=== PATIENT | female | born 1945 | race Caucasian/White ===

== ENCOUNTER 2016-12-17 10:48 | Outpatient (CLI) | payer MEDICARE, OTHER ==
--- NOTE | 2016-12-18 17:03 | Mammography Report ---
DIGITAL SCREENING MAMMOGRAM: 12/17/2016 CLINICAL INDICATION: A 71-year-old with history of benign biopsy for screening. COMPARISON: 09/2015, 08/2014, 07/2013, 06/2012, 04/2011, 02/2010, 01/2009, 01/2008, 01/2007. TECHNIQUE: Routine CC and MLO projections were obtained of the breasts. FINDINGS: The breasts again demonstrate scattered fibroglandular densities bilaterally. Punctate, t ypically benign calcifications are present. Intramammary lymph node at the left upper outer quadrant is stable. No suspicious masses, clustered microcalcifications, or regions of architectural distort ion are identified. IMPRESSION: BENIGN FINDINGS. RECOMMENDATION: Routine annual screening unless otherwise clinically indicated. BIRADS CATEGORY 2 - BENIGN FINDINGS. STANDARD QUALIFYING STATEMENTS 1. This examination was reviewed with the aid of Computer-Aided Detection (CAD). 2. A negative or benign imaging report should not delay biopsy if clinically suspicious findings are present. Consider surgical consultation if warranted. More than 5% of cancers are not identified by i maging. 3. Dense breasts may obscure an underlying neoplasm. JOB #: [id number] EXT JOB #:[id number]
== END 2016-12-17 10:49 | disposition home or self-care (01) ==
LOC: DI.N 10:48
PROVIDERS: ATTEND Family Medicine
DX: Z12.31 Encounter for screening mammogram for malignant neoplasm of breast (principal)
CPT/HCPCS: 77067

== ENCOUNTER 2017-01-14 15:28 | Outpatient (CLI) | payer MEDICARE, OTHER | END 2017-01-14 15:29 | disposition short-term general hospital (02) | LOC: EMS 15:28 | PROVIDERS: ATTEND Surgery | DX: R07.9 Chest pain, unspecified (principal) | CPT/HCPCS: A0425; A0427; A0888 ==

== ENCOUNTER 2017-10-02 12:48 | Outpatient (CLI) | payer MEDICARE, OTHER ==
--- NOTE | 2017-10-02 13:36 | Ultrasound Report ---
EXAM: THYROID ULTRASOUND EXAM DATE: 10/02/2017 01:22 PM. CLINICAL HISTORY: THYROID CYST. 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 COMPARISON: None. TECHNIQUE: Real time sonographic imaging of the thyroid was performed by the wheel assembler. Multiple re presentative static images were saved for review. FINDINGS: THYROID GLAND: Right Lobe: 2.3 x 0.8 x 1.0 cm, volume 0.92 cc. Diffusely heterogeneous. Small volume. Minimal vascu larity. Right Lobe Nodules: None. Left Lobe: 3.0 x 0.6 x 1.1 cm, volume 1.0 cc. Diffusely heterogeneous. Small volume. Minimal vascula rity. Left Lobe Nodules: 1. Superior heterogeneous, 0.7 x 0.3 x 0.5 cm. No abnormal calcifications. Isthmus: 3-4 cm AP. Isthmic Nodules: None. LYMPH NODES: No adenopathy demonstrated in the central or lateral compartment. OTHER: None. IMPRESSION: 1. Very small markedly heterogeneous thyroid gland with a single 0.7 cm left thyroid lobe nodule. No abnormal calcifications. The nodule does not warrant fine-needle aspiration biopsy. Management recommendations are based on 2015 [place] [employer] Management Guidelines for A dult Patients with Thyroid Nodules and Differentiated Thyroid Cancer. [facility] Referring Provider Line: [phone] SITE ID: [id number]
== END 2017-10-02 12:49 | disposition home or self-care (01) ==
LOC: DI 12:48
PROVIDERS: ATTEND Family Medicine
DX: E04.1 Nontoxic single thyroid nodule (principal)
CPT/HCPCS: 76536

== ENCOUNTER 2017-12-27 11:30 | Outpatient (CLI) | payer MEDICARE, OTHER ==
--- NOTE | 2017-12-28 15:07 | Mammography Report ---
DIGITAL SCREENING MAMMOGRAM: 12/27/2017 CLINICAL INDICATION: A 72-year-old with history of benign right breast biopsy for screening. COMPARISON: 12/2016, 09/2015, 08/2014, 07/2013. TECHNIQUE: Routine CC and MLO projections were obtained of the breasts. FINDINGS: The breasts again demonstrate scattered fibroglandular densities bilaterally. Punctate, typically benign calcifications are present. Intramammary lymph node in the left upper outer quadrant is stable. Post-biopsy changes in the right breast are stable. No suspicious masses, clustered microcalcifications, or regions of architectural distortion are identified. IMPRESSION: BENIGN FINDINGS. RECOMMENDATION: Routine annual screening unless otherwise clinically indicated. BI-RADS CATEGORY 2 - BENIGN FINDINGS. STANDARD QUALIFYING STATEMENTS: 1. This examination was reviewed with the aid of Computer-Aided Detection (CAD). 2. A negative or benign imaging report should not delay biopsy if clinically suspicious findings are present. Consider surgical consultation if warranted. More than 5% of cancers are not identified by imaging. 3. Dense breasts may obscure an underlying neoplasm. TD: 12/28/2017 14:58
== END 2017-12-27 11:31 | disposition home or self-care (01) ==
LOC: DI.N 11:30
PROVIDERS: ATTEND Family Medicine
DX: Z12.31 Encounter for screening mammogram for malignant neoplasm of breast (principal)
CPT/HCPCS: 77067

== ENCOUNTER 2018-07-11 12:27 | Outpatient (CLI) | payer MEDICARE, OTHER ==
--- NOTE | 2018-07-11 14:58 | XRAY Report ---
Reason: KNEE PAIN, RIGHT AND LEFT Procedure Date: 07/11/2018 Accession Number: [id number] / [id number] Procedure: XR - Knee 3 View BILAT CPT Code: FULL RESULT: EXAMS: 1. Right Knee Radiography 2. Left Knee Radiography EXAM DATE: 07/11/2018 01:15 PM. CLINICAL HISTORY: Knee pain, right and left. COMPARISON: None. TECHNIQUE: 3 views each. FINDINGS: Right Knee: Bones: Normal. No fractures or bone lesions. Joints: Moderate joint space loss in the weightbearing compartments, medial greater than lateral. No effusion. No subluxations. Soft Tissues: Normal. No soft tissue swelling. Left Knee: Bones: Normal. No fractures or bone lesions. Joints: Moderate joint space loss in the weightbearing compartments, medial greater than lateral. No effusion. No subluxations. Soft Tissues: Normal. No soft tissue swelling. IMPRESSION: Moderate knee joint osteoarthrosis bilaterally. [facility]
--- NOTE | 2018-07-12 09:09 | DEXA Report ---
Reason: BONE DISORDER Procedure Date: 07/11/2018 Accession Number: [id number] / [id number] Procedure: DEX - Dexa Spine and/or Hip CPT Code: FULL RESULT: EXAM: Dexa Spine and/or Hip DATE: 07/11/2018 1:06 PM CLINICAL HISTORY: BONE DISORDER TECHNIQUE: Dual energy x-ray absorptiometry (DXA) was performed on a Tr[employer]em[employer] System. Regions measured are the AP Spine, femoral neck, and if needed forearm. COMPARISON: None. In accordance with the International Society for Clinical Densitometry (ISCD) guidelines, data from previous exams may be reanalyzed using current recommendations and techniques. This is done to allow a more accurate basis for comparison with the current study. FINDINGS: The data for the lumbar spine is as follows: BMD (g/cm/cm) T-SCORE Z-SCORE REGION L1 1.079 -0.4 0.5 L2 1.184 -0.1 0.8 L3 1.388 1.6 2.5 L4 1.525 2.7 3.7 TOTAL 1.318 1.1 2.1 NOTE: All evaluable vertebrae are used for classification The data for the hip is as follows: BMD (g/cm/cm) T-SCORE Z-SCORE REGION Neck 0.828 -1.5 -0.2 TOTAL 0.971 -0.3 0.8 NOTE: The femoral neck or total proximal femur, whichever is lowest, is used for classification. IMPRESSION: THE WHO CLASSIFICATION BASED ON THE INTERNATIONAL REFERENCE STANDARD IS OSTEOPENIA. THE FRACTURE RISK IS INCREASED. RECOMMENDATION: Patients with diagnosis of osteoporosis or osteopenia should have regular bone mineral density assessment. For those eligible for Medicare, routine testing is allowed once every 2 years. Testing frequency can be increased for patients who have rapidly progressing disease or for those who are receiving medical therapy to restore bone mass. COMMENT: World Health Organization (WHO) definitions for osteoporosis and osteopenia: NORMAL BMD: T-score at -1.0 or higher, fracture risk is low OSTEOPENIA BMD: T-score between -1.0 and -2.5, fracture risk is increased. OSTEOPOROSIS BMD: T-score at -2.5 or lower, fracture risk is high. National Osteoporosis Foundation recommends: 1. Obtain adequate dietary calcium (at least 1200 mg per day) and vitamin D (400-800 international units per day). 2. Participate, as appropriate, in regular weightbearing and muscle-strengthening exercise. 3. Avoid tobacco use and reduce alcohol and caffeine intake. 4. For more detailed information see the website at www.NOF.org.
== END 2018-07-11 12:28 | disposition home or self-care (01) ==
LOC: DI 12:27
PROVIDERS: ATTEND Family Medicine
DX: M85.89 Other specified disorders of bone density and structure, multiple sites (principal); M17.0 Bilateral primary osteoarthritis of knee
CPT/HCPCS: 77080

== ENCOUNTER 2019-01-10 13:09 | Outpatient (CLI) | payer MEDICARE, OTHER ==
--- NOTE | 2019-01-11 08:27 | Mammography Report ---
Reason: SCREENING MAMMO Procedure Date: 01/10/2019 Accession Number: [id number] / [id number] Procedure: MGN - Screening Mammo Dig Bilat CPT Code: FULL RESULT: EXAM: Screening Mammo Dig Bilat DATE: 01/10/2019 1:41 PM CLINICAL HISTORY: Screening encounter. History of benign right breast biopsy in 1998. TECHNIQUE: (B) - Bilateral CC and MLO views were obtained. COMPARISON: 12/27/2017 through 09/04/2014. PARENCHYMAL PATTERN: (A) - The breast(s) demonstrate(s) scattered fibroglandular densities. FINDINGS: In the right upper inner breast approximately 10 cm from the nipple is a isodense irregularly marginated 0.7 cm nodule which is new. This requires additional spot views as well as ultrasound for characterization. Postbiopsy changes of the right breast are stable. A well-circumscribed fat-containing left breast upper outer nodule is stable dating back to 2014, typically benign. There are no suspicious masses, calcifications, or areas of distortion in the left breast. IMPRESSION: Incomplete examination. BI-RADS category 0. RECOMMENDATION: (ADDMU) - Additional views using both Mammography and Ultrasound recommended. Right breast upper inner quadrant ultrasound and spot views. BI-RADS CATEGORY: (0) - Incomplete Examination - need additional evaluation. STANDARD QUALIFYING STATEMENTS: 1. This examination was not reviewed with the aid of Computer-Aided Detection (CAD). 2. A negative or benign imaging report should not preclude biopsy if clinically suspicious findings are present. 3. Dense breasts may obscure an underlying neoplasm. 4. This examination was reviewed without the aid of 3D breast imaging (tomosynthesis).
== END 2019-01-10 13:10 | disposition home or self-care (01) ==
LOC: DI.N 13:09
DX: Z12.31 Encounter for screening mammogram for malignant neoplasm of breast (principal); R92.8 Other abnormal and inconclusive findings on diagnostic imaging of breast
CPT/HCPCS: 77067

== ENCOUNTER 2019-01-23 08:41 | Outpatient (CLI) | payer MEDICARE, OTHER ==
--- NOTE | 2019-01-23 09:36 | XRAY Report ---
Reason: THUMB PAIN,RIGHT Procedure Date: 01/23/2019 Accession Number: [id number] / [id number] Procedure: WCP - Wrist 3 View RT CPT Code: FULL RESULT: EXAM: RIGHT WRIST RADIOGRAPHY EXAM DATE: 01/23/2019 08:39 AM. CLINICAL HISTORY: Thumb pain, right. COMPARISON: None. TECHNIQUE: 3 views. FINDINGS: Bones: Normal. No fractures or bone lesions. Joints: There are mild degenerative changes at the base of the thumb. Soft Tissues: Normal. No soft tissue swelling. IMPRESSION: Mild degenerative changes. [facility]
== END 2019-01-23 08:42 | disposition home or self-care (01) ==
LOC: DI.WCP 08:41
PROVIDERS: ATTEND Family Medicine
DX: M19.031 Primary osteoarthritis, right wrist (principal)

== ENCOUNTER 2019-01-25 12:18 | Outpatient (CLI) | payer MEDICARE, OTHER ==
--- NOTE | 2019-01-25 14:07 | Mammography Report ---
Reason: ABNORMAL MAMMOGRAM Procedure Date: 01/25/2019 Accession Number: [id number] / [id number] Procedure: ABDULLAHI - Diag Special Views Dig RT CPT Code: FULL RESULT: EXAM: Diag Special Views Dig RT DATE: 01/25/2019 1:07 PM CLINICAL HISTORY: Diagnostic mammogram. The patient is recalled from screening for findings of a right breast nodule. TECHNIQUE: (R) - Right spot CC, spot MLO and ML views are obtained. Focused right breast ultrasound is performed. COMPARISON: 01/10/2019 through 09/04/2014. PARENCHYMAL PATTERN: (A) - The breast(s) demonstrate(s) scattered fibroglandular densities. FINDINGS: The 0.7 cm right breast 1:00 nodule, 10 cm from the nipple persists on spot compression views and corresponds to a sonographically hypoechoic relatively well-defined 0.8 x 0.6 x 0.9 cm nodule with mildly irregular borders on focused right breast ultrasound. This requires tissue sampling by ultrasound-guided biopsy. There are no suspicious calcifications, or areas of distortion. IMPRESSION: Suspicious findings. BI-RADS category 4. RECOMMENDATION: (BIOPSY) - right breast ultrasound-guided. BI-RADS CATEGORY: (4) - Suspicious. STANDARD QUALIFYING STATEMENTS: 1. This examination was not reviewed with the aid of Computer-Aided Detection (CAD). 2. A negative or benign imaging report should not preclude biopsy if clinically suspicious findings are present. 3. Dense breasts may obscure an underlying neoplasm. 4. This examination was reviewed with the aid of 3D breast imaging (tomosynthesis).
== END 2019-01-25 12:19 | disposition home or self-care (01) ==
LOC: DI 12:18
PROVIDERS: ATTEND Family Medicine
DX: N63.10 Unspecified lump in the right breast, unspecified quadrant (principal); R92.8 Other abnormal and inconclusive findings on diagnostic imaging of breast
CPT/HCPCS: 76642; 77065; G0279

== ENCOUNTER 2019-02-02 08:25 | Outpatient (CLI) | payer MEDICARE, OTHER ==
[2019-02-02] MEDS ORDERED: BUPIVACAINE 0.5%-EPI 1:200000 PF 10 ML VIAL ONE (09:03)
[2019-02-02] MEDS ORDERED: BUFFERED LIDOCAINE 10 ML SYRINGE ONE (09:04)
--- NOTE | 2019-02-02 11:29 | Ultrasound Report ---
Reason: RT BREAST NODULE Procedure Date: 02/02/2019 Accession Number: [id number] / [id number] Procedure: US - Biopsy Breast Core CPT Code: FULL RESULT: PROCEDURE: Ultrasound-guided needle biopsy right breast mass. CLINICAL DATA: Targeted mass measuring 0.7 cm with smooth margins in the 1 o'clock axis of the right breast. Informed consent was obtained. Using standard aseptic technique, both 1% buffered lidocaine and Sensorcaine were injected into the right breast for local anesthesia. A small dominic was made in the skin with a #11 blade. A 12-gauge [employer] vacuum-assisted device was used to obtain 4 specimens. A specialized biopsy marker clip was placed into the biopsy cavity under ultrasound guidance. The patient was taken to separate mammography machine and a two-view digital mammography was performed to verify the clip placement and any complications. The mammography showed concordant clip position. The wound was dressed and ice applied. The patient was observed for approximately 15 minutes, then was discharged from diagnostic imaging Department in good condition following instructions on wound care and obtaining biopsy results. The patient is scheduled to receive the biopsy results from the referring physician. The tissue was sent for histologic analysis. IMPRESSION: Ultrasound-guided biopsy of the right breast. AN ADDENDUM WILL BE MADE TO THIS REPORT WHEN PATHOLOGY IS REVIEWED TO ESTABLISH CONCORDANCE.
[2019-02-02] MEDS ORDERED: BUFFERED LIDOCAINE 10 ML SYRINGE IU ONE (16:23)
[2019-02-02] MEDS ORDERED: BUPIVACAINE 0.5%-EPI 1:200000 PF 10 ML VIAL SUBQ ONE (16:23)
== END 2019-02-02 08:26 | disposition home or self-care (01) ==
LOC: DI 08:25
PROVIDERS: ATTEND Family Medicine
DX: C50.911 Malignant neoplasm of unspecified site of right female breast (principal); Z17.0 Estrogen receptor positive status [ER+]
CPT/HCPCS: 19083

== ENCOUNTER 2019-10-11 12:23 | Outpatient (CLI) | payer MEDICARE, OTHER ==
--- NOTE | 2019-10-11 13:42 | Mammography Report ---
Reason: HX RIGHT BREAST CA Procedure Date: 10/11/2019 Accession Number: [id number] / [id number] Procedure: ABDULLAHI - Diagnostic Dig RT CPT Code: Final Report FULL RESULT: EXAM: Diagnostic Dig RT DATE: 10/11/2019 1:28 PM CLINICAL HISTORY: Diagnostic examination. New baseline examination follow-up of right breast lumpectomy for invasive adenocarcinoma, ER/AK positive. TECHNIQUE: (R) - Right CC and MLO views were obtained. Spot magnified CC spot magnified ML and ML images are obtained. COMPARISON: 02/02/2019 through 02/12/2010. PARENCHYMAL PATTERN: (D) - The breast(s) demonstrate(s) heterogeneously dense fibroglandular parenchyma. FINDINGS: Interval lumpectomy, expected appearance, probably benign. There are no suspicious masses, calcifications, or areas of distortion. IMPRESSION: Probably Benign. BI-RADS category 3. RECOMMENDATION: (6MOS) - Recommend 6 month follow-up exam. This could be performed at the time of annual screening mammography of the left breast. BI-RADS CATEGORY: (3) - Probably Benign. STANDARD QUALIFYING STATEMENTS: 1. This examination was not reviewed with the aid of Computer-Aided Detection (CAD). 2. A negative or benign imaging report should not preclude biopsy if clinically suspicious findings are present. 3. Dense breasts may obscure an underlying neoplasm. 4. This examination was reviewed with the aid of 3D breast imaging (tomosynthesis).
== END 2019-10-11 12:24 | disposition home or self-care (01) ==
LOC: DI 12:23
PROVIDERS: ATTEND Surgery
DX: Z08 Encounter for follow-up examination after completed treatment for malignant neoplasm (principal); Z85.3 Personal history of malignant neoplasm of breast

== ENCOUNTER → 2020-01-19 | Outpatient (CLI) | payer MEDICARE, OTHER ==
[2020-01-19 12:02] LABS: BASOPHILS % (AUTO) 0.5 %; EOSINOPHILS # (AUTO) 0.2 10^3/uL (0.0-0.7); EOSINOPHILS % (AUTO) 2.5 %; HGB - HEMOGLOBIN 14.2 g/dL (12.0-16.0); LYMPHOCYTES # (AUTO) 1.9 10^3/uL (1.5-3.5); MEAN CORPUSCULAR HEMOGLOBIN 28.4 pg (27.0-31.0); MEAN CORPUSCULAR HGB CONC 32.6 g/dL (32.0-36.0); MEAN PLATELET VOLUME 9.8 fL (7.9-10.8); MONOCYTES # (AUTO) 0.6 10^3/uL (0.0-1.0); NEUTROPHILS # (AUTO) 3.4 10^3/uL (1.5-6.6); NEUTROPHILS % (AUTO) 56.3 %; PLT - PLATELET COUNT 273 10^3/uL (130-450); RED CELL DISTRIBUTION WIDTH 13.1 % (12.0-15.0); WHITE BLOOD COUNT 6.1 x10^3/uL (4.8-10.8)
[2020-01-19 12:27] LABS: HEMOGLOBIN A1C 0.6 g/dL; HEMOGLOBIN A1C % 5.8 % (4.6-6.2)
[2020-01-19 12:37] LABS: ALBUMIN 4.3 g/dL (3.2-5.5); ALBUMIN/GLOBULIN RATIO 1.5 (1.0-2.2); ALKALINE PHOSPHATASE 70 IU/L (42-121); ALT ALANINE AMINOTRANSFERASE 35 IU/L (10-60); AST ASPARTATE AMINOTRANSFERASE 30 IU/L (10-42); BILIRUBIN,TOTAL 0.9 mg/dL (0.2-1.0); BUN - BLOOD UREA NITROGEN 18 mg/dL (6-20); CALCIUM 9.4 mg/dL (8.5-10.3); CARBON DIOXIDE - CO2 27 mmol/L (21-32); CHLORIDE 104 mmol/L (101-111); CHOL/HDL RATIO 3.6 (<4.4); CHOLESTEROL 171 mg/dL; CREATININE 0.9 mg/dL (0.4-1.0); GLUCOSE 108 mg/dL (70-100); HDL CHOLESTEROL 47 mg/dL; LDL CHOLESTEROL,CALCULATED 85 mg/dL; LDL/HDL RATIO 1.8 (<4.4); SODIUM 138 mmol/L (135-145); TOTAL PROTEIN 7.2 g/dL (6.7-8.2); VLDL CHOLESTEROL 39 mg/dL
== END ==
LOC: LAB.WCP 09:40
PROVIDERS: ATTEND Family Medicine
DX: E03.9 Hypothyroidism, unspecified (principal); I10 Essential (primary) hypertension; E78.5 Hyperlipidemia, unspecified; R73.01 Impaired fasting glucose
CPT/HCPCS: 36415; 80053; 80061; 83036; 83721; 84443; 85025

== ENCOUNTER 2020-05-20 09:24 | Outpatient (CLI) | payer MEDICARE, OTHER ==
--- NOTE | 2020-05-23 12:40 | Mammography Report ---
BILATERAL DIGITAL DIAGNOSTIC MAMMOGRAM 3D/2D: 05/20/2020 CLINICAL: Patient returns for a 6 month follow up of the right breast. Screening of the left breast. Comparison is made to exams dated: 10/11/2019 mammogram, 02/02/2019 mammogram, 01/10/2019 mammogram, 12/27 mammogram, and 12/23/2016 mammogram - [facility]. There are scattered fibrogl andular elements in both breasts. There are benign post operative findings in the right breast. No significant masses, calcifications, or other findings are seen in either breast. There has been no significant interval change. IMPRESSION: BENIGN There is no mammographic evidence of malignancy. A 1 year screening mammogram is recommended. This exam was interpreted at Station ID: [id number] NOTE: For mammograms, a report in lay terms will be sent to the patient. Approximately 15% of breast malignancies will not be visualized mammographically. In the management of a palpable breast mass, a negative mammogram must not discourage biopsy of a clinically suspicious lesion. Electronically Signed By: Tono thacker/lauren:05/22/2020 17:22:43 ACR BI-RADS Category 2: Benign Finding(s) 3342F PARENCHYMAL PATTERN: (A) - The breast(s) demonstrate(s) scattered fibroglandular densities. BI-RADS CATEGORY: (2) - 2 RECOMMENDATION: (ANNUAL) - Recommend routine annual screening mammography. [id number] 1 year screening LATERALITY: (B)
== END 2020-05-20 09:25 | disposition home or self-care (01) ==
LOC: DI 09:24
PROVIDERS: ATTEND Surgery
DX: R92.8 Other abnormal and inconclusive findings on diagnostic imaging of breast (principal); Z85.3 Personal history of malignant neoplasm of breast
CPT/HCPCS: 77066

== ENCOUNTER 2020-07-02 08:00 | Outpatient (CLI) | payer MEDICARE, OTHER ==
[2020-07-02 11:51] LABS: BASOPHILS % (AUTO) 0.4 %; EOSINOPHILS # (AUTO) 0.2 10^3/uL (0.0-0.7); EOSINOPHILS % (AUTO) 3.7 %; HGB - HEMOGLOBIN 14.1 g/dL (12.0-16.0); LYMPHOCYTES # (AUTO) 1.9 10^3/uL (1.5-3.5); LYMPHOCYTES % (AUTO) 35.2 %; MEAN CORPUSCULAR HEMOGLOBIN 29.3 pg (27.0-31.0); MEAN CORPUSCULAR HGB CONC 33.5 g/dL (32.0-36.0); MEAN CORPUSCULAR VOLUME 87.5 fL (81.0-99.0); MEAN PLATELET VOLUME 9.8 fL (7.9-10.8); MONOCYTES # (AUTO) 0.5 10^3/uL (0.0-1.0); MONOCYTES % (AUTO) 10.1 %; NEUTROPHILS # (AUTO) 2.7 10^3/uL (1.5-6.6); PLT - PLATELET COUNT 247 10^3/uL (130-450); RED BLOOD COUNT 4.81 10^6/uL (4.20-5.40); RED CELL DISTRIBUTION WIDTH 13.2 % (12.0-15.0); WHITE BLOOD COUNT 5.3 x10^3/uL (4.8-10.8)
[2020-07-02 12:31] LABS: ALBUMIN 4.1 g/dL (3.2-5.5); ALBUMIN/GLOBULIN RATIO 1.5 (1.0-2.2); ALKALINE PHOSPHATASE 65 IU/L (42-121); ALT ALANINE AMINOTRANSFERASE 38 IU/L (10-60); AST ASPARTATE AMINOTRANSFERASE 35 IU/L (10-42); BILIRUBIN,TOTAL 0.9 mg/dL (0.2-1.0); BUN - BLOOD UREA NITROGEN 19 mg/dL (6-20); CALCIUM 9.3 mg/dL (8.5-10.3); CARBON DIOXIDE - CO2 26 mmol/L (21-32); CHLORIDE 105 mmol/L (101-111); CHOL/HDL RATIO 4.1 (<4.4); CHOLESTEROL 170 mg/dL; GLUCOSE 115 mg/dL (70-100); HDL CHOLESTEROL 41 mg/dL; LDL CHOLESTEROL,CALCULATED 68 mg/dL; LDL/HDL RATIO 1.7 (<4.4); SODIUM 138 mmol/L (135-145); TOTAL PROTEIN 6.8 g/dL (6.7-8.2); VLDL CHOLESTEROL 61 mg/dL
[2020-07-02 13:23] LABS: FREE T4 (FREE THYROXINE) 0.86 ng/dL (0.58-1.64)
== END 2020-07-02 23:59 | disposition home or self-care (01) ==
LOC: LAB.WCP 08:00
PROVIDERS: ATTEND Family Medicine
DX: I10 Essential (primary) hypertension (principal); R73.01 Impaired fasting glucose; E78.5 Hyperlipidemia, unspecified; E03.9 Hypothyroidism, unspecified
CPT/HCPCS: 36415; 80053; 80061; 83036; 83721; 84439; 84443; 85025

== ENCOUNTER 2021-03-31 09:02 | Outpatient (CLI) | payer MEDICARE, OTHER ==
[2021-03-31 12:09] LABS: BASOPHILS % (AUTO) 0.6 %; EOSINOPHILS # (AUTO) 0.2 10^3/uL (0.0-0.7); EOSINOPHILS % (AUTO) 2.8 %; HCT - HEMATOCRIT 44.3 % (37.0-47.0); HGB - HEMOGLOBIN 14.4 g/dL (12.0-16.0); LYMPHOCYTES # (AUTO) 1.6 10^3/uL (1.5-3.5); LYMPHOCYTES % (AUTO) 29.5 %; MEAN CORPUSCULAR HEMOGLOBIN 28.4 pg (27.0-31.0); MEAN CORPUSCULAR HGB CONC 32.5 g/dL (32.0-36.0); MEAN CORPUSCULAR VOLUME 87.4 fL (81.0-99.0); MEAN PLATELET VOLUME 10.1 fL (7.9-10.8); MONOCYTES # (AUTO) 0.6 10^3/uL (0.0-1.0); MONOCYTES % (AUTO) 10.3 %; NEUTROPHILS % (AUTO) 56.4 %; PLT - PLATELET COUNT 246 10^3/uL (130-450); RED BLOOD COUNT 5.07 10^6/uL (4.20-5.40); RED CELL DISTRIBUTION WIDTH 13.4 % (12.0-15.0); WHITE BLOOD COUNT 5.4 x10^3/uL (4.8-10.8)
[2021-03-31 12:22] LABS: ALBUMIN 4.2 g/dL (3.2-5.5); ALBUMIN/GLOBULIN RATIO 1.6 (1.0-2.2); ALKALINE PHOSPHATASE 64 IU/L (42-121); ALT ALANINE AMINOTRANSFERASE 36 IU/L (10-60); AST ASPARTATE AMINOTRANSFERASE 30 IU/L (10-42); BILIRUBIN,TOTAL 1.1 mg/dL (0.2-1.0); BUN - BLOOD UREA NITROGEN 18 mg/dL (6-20); CALCIUM 9.2 mg/dL (8.5-10.3); CARBON DIOXIDE - CO2 25 mmol/L (21-32); CHLORIDE 100 mmol/L (101-111); CHOL/HDL RATIO 3.6 (<4.4); CHOLESTEROL 169 mg/dL; CREATININE 0.9 mg/dL (0.4-1.0); GFR - MDRD 61 (>89); GLUCOSE 138 mg/dL (70-100); HDL CHOLESTEROL 47 mg/dL; LDL CHOLESTEROL,CALCULATED 84 mg/dL; LDL/HDL RATIO 1.8 (<4.4); POTASSIUM 3.6 mmol/L (3.5-5.0); SODIUM 135 mmol/L (135-145); TOTAL PROTEIN 6.9 g/dL (6.7-8.2); TRIGLYCERIDES 192 mg/dL; VLDL CHOLESTEROL 38 mg/dL
[2021-03-31 12:34] LABS: THYROID STIMULATING HORMONE 1.63 uIU/mL (0.34-5.60)
== END 2021-03-31 23:59 | disposition home or self-care (01) ==
LOC: LAB.WCP 09:02
PROVIDERS: ATTEND Family Medicine
DX: I10 Essential (primary) hypertension (principal); E78.5 Hyperlipidemia, unspecified
CPT/HCPCS: 36415; 80053; 80061; 83721; 84443; 85025

== ENCOUNTER 2021-05-01 12:21 | Outpatient (CLI) | payer MEDICARE, OTHER ==
--- NOTE | 2021-05-02 08:42 | Mammography Report ---
BILATERAL DIGITAL DIAGNOSTIC MAMMOGRAM 3D/2D: 05/01/2021 CLINICAL: Focal right breast pain. Comparison is made to exams dated: 05/20/2020 mammogram, 10/11/2019 mammogram, 02/02/2019 mammogram, ultrasound biopsy, 01/10/2019 mammogram, and 12/27/2017 mammogram - [facility] . There are scattered fibroglandular elements in both breasts. Stable post-operative findings in the right breast and right axilla. No significant masses, calcifications, or other findings are seen in either breast. IMPRESSION: INCOMPLETE: NEEDS ADDITIONAL IMAGING EVALUATION Stable post-operative findings in the right breast and right axilla. A targeted ultrasound of the right axilla is recommended and will immediately follow. This exam was interpreted at Station ID: [id number]. NOTE: For mammograms, a report in lay terms will be sent to the patient. Approximately 15% of breast malignancies will not be visualized mammographically. In the management of a palpable breast mass, a negative mammogram must not discourage biopsy of a clinically suspicious lesion. Electronically Signed By: Matthew Menard M.D. slc/:05/01/2021 13:40:18 ACR BI-RADS Category 0: Incomplete 3340F PARENCHYMAL PATTERN: (A) - The breast(s) demonstrate(s) scattered fibroglandular densities. BI-RADS CATEGORY: (0) - 0 Ultrasound [id number] Immediate follow-up LATERALITY: (B)
--- NOTE | 2021-05-02 08:42 | Ultrasound Report ---
ULTRASOUND OF RIGHT BREAST AND AXILLA: 05/01/2021 CLINICAL: Focal right axilla pain. Comparison is made to exams dated: 05/01/2021 mammogram, 05/20/2020 mammogram, 10/11/2019 mammogram, mammogram, 01/25/2019 mammogram, and 01/10/2019 mammogram - [facility]. Real-time ultrasound of the right breast axilla was performed. Emery scale images of the real-time ex amination were reviewed. No significant abnormalities were seen sonographically in the right axilla. No enlarged nodes. IMPRESSION: NEGATIVE There is no sonographic evidence of malignancy in the right axilla at site of focal pain. A 1 year screening mammogram is recommended. Exam findings were conveyed to the patient. Patient is advised to monitor for significant change. Cli nical follow-up as needed. This exam was interpreted at Station ID: [id number]. Electronically Signed By: Matthew Menard M.D. slc/:05/01/2021 13:42:16 Ultrasound BI-RADS: 1 Negative BI-RADS CATEGORY: (1) - 1 RECOMMENDATION: (ANNUAL) - Recommend routine annual screening mammography. [id number] 1 year screening LATERALITY: (B)
== END 2021-05-01 12:22 | disposition home or self-care (01) ==
LOC: DI 12:21
PROVIDERS: ATTEND Family Medicine
DX: C50.911 Malignant neoplasm of unspecified site of right female breast (principal); N64.4 Mastodynia

== ENCOUNTER 2021-08-28 09:14 | Outpatient (CLI) | payer MEDICARE, OTHER ==
[2021-08-28 12:15] LABS: BASOPHILS % (AUTO) 0.7 %; EOSINOPHILS # (AUTO) 0.2 10^3/uL (0.0-0.7); HCT - HEMATOCRIT 42.9 % (37.0-47.0); HGB - HEMOGLOBIN 14.3 g/dL (12.0-16.0); LYMPHOCYTES # (AUTO) 1.9 10^3/uL (1.5-3.5); LYMPHOCYTES % (AUTO) 31.7 %; MEAN CORPUSCULAR HEMOGLOBIN 28.9 pg (27.0-31.0); MEAN CORPUSCULAR HGB CONC 33.3 g/dL (32.0-36.0); MEAN CORPUSCULAR VOLUME 86.7 fL (81.0-99.0); MONOCYTES # (AUTO) 0.6 10^3/uL (0.0-1.0); MONOCYTES % (AUTO) 10.4 %; NEUTROPHILS # (AUTO) 3.3 10^3/uL (1.5-6.6); NEUTROPHILS % (AUTO) 53.9 %; PLT - PLATELET COUNT 252 10^3/uL (130-450); RED BLOOD COUNT 4.95 10^6/uL (4.20-5.40); RED CELL DISTRIBUTION WIDTH 12.8 % (12.0-15.0)
[2021-08-28 13:04] LABS: THYROID STIMULATING HORMONE 0.44 uIU/mL (0.34-5.60)
[2021-08-28 13:12] LABS: ALBUMIN 3.9 g/dL (3.2-5.5); ALBUMIN/GLOBULIN RATIO 1.4 (1.0-2.2); ALKALINE PHOSPHATASE 66 IU/L (42-121); ALT ALANINE AMINOTRANSFERASE 39 IU/L (10-60); AST ASPARTATE AMINOTRANSFERASE 33 IU/L (10-42); BUN - BLOOD UREA NITROGEN 17 mg/dL (6-20); CALCIUM 9.5 mg/dL (8.5-10.3); CARBON DIOXIDE - CO2 26 mmol/L (21-32); CHLORIDE 100 mmol/L (101-111); CHOL/HDL RATIO 3.7 (<4.4); CHOLESTEROL 153 mg/dL; GFR - MDRD 54 (>89); GLUCOSE 131 mg/dL (70-100); HDL CHOLESTEROL 41 mg/dL; LDL CHOLESTEROL,CALCULATED 78 mg/dL; LDL/HDL RATIO 1.9 (<4.4); POTASSIUM 3.5 mmol/L (3.5-5.0); SODIUM 135 mmol/L (135-145); TOTAL PROTEIN 6.6 g/dL (6.7-8.2); TRIGLYCERIDES 170 mg/dL; VLDL CHOLESTEROL 34 mg/dL
[2021-08-28 17:21] LABS: ESTIMATED AVERAGE GLUCOSE 134 mg/dL (70-100); HEMOGLOBIN A1c% 6.3 % (4.27-6.07)
== END 2021-08-28 23:59 | disposition home or self-care (01) ==
LOC: LAB.WCP 09:14
PROVIDERS: ATTEND Family Medicine
DX: I10 Essential (primary) hypertension (principal); E78.5 Hyperlipidemia, unspecified; R73.01 Impaired fasting glucose; E03.9 Hypothyroidism, unspecified; R03.0 Elevated blood-pressure reading, without diagnosis of hypertension
CPT/HCPCS: 36415; 80053; 80061; 83036; 83721; 84443; 85025

== ENCOUNTER 2021-11-27 08:00 | Outpatient (CLI) | payer MEDICARE, OTHER | END 2021-11-27 23:59 | disposition home or self-care (01) | LOC: LAB.N 08:00 | PROVIDERS: ATTEND Physician Assistant Medical | DX: U07.1 COVID-19 (principal) ==

== ENCOUNTER 2022-02-26 09:19 | Outpatient (CLI) | payer MEDICARE, OTHER ==
[2022-02-26 12:14] LABS: ALBUMIN/GLOBULIN RATIO 1.5 (1.0-2.2); BILIRUBIN,TOTAL 0.9 mg/dL (0.2-1.0); CALCIUM 9.8 mg/dL (8.5-10.3); CREATININE 0.9 mg/dL (0.4-1.0); POTASSIUM 4.2 mmol/L (3.5-5.0); TOTAL PROTEIN 6.7 g/dL (6.7-8.2)
[2022-02-26 20:41] LABS: ESTIMATED AVERAGE GLUCOSE 134 mg/dL (70-100); HEMOGLOBIN A1c% 6.3 % (4.27-6.07)
== END 2022-02-26 09:20 | disposition home or self-care (01) ==
LOC: LAB.N 09:19
PROVIDERS: ATTEND Family Medicine
DX: R73.01 Impaired fasting glucose (principal)
CPT/HCPCS: 36415; 80053; 83036

== ENCOUNTER 2022-05-04 10:18 | Outpatient (CLI) | payer MEDICARE, OTHER ==
--- NOTE | 2022-05-05 11:30 | Mammography Report ---
BILATERAL DIGITAL SCREENING MAMMOGRAM 3D/2D: 05/04/2022 CLINICAL: Routine screening. Personal history of right breast cancer. Comparison is made to exams dated: 05/01/2021 ultrasound, 05/01/2021 mammogram, 05/20/2020 mammogram, 10/11/2019 mammogram, 02/02/2019 mammogram, and 02/02/2019 ultrasound biopsy - [facility]. There are scattered areas of fibroglandular density in both breasts (category b / 25%-50% glandular t issue). No significant masses, calcifications, or other findings are seen in either breast. There has been no significant interval change. IMPRESSION: NEGATIVE There is no mammographic evidence of malignancy. A 1 year screening mammogram is recommended. This exam was interpreted at Station ID: [id number]. NOTE: For mammograms, a report in lay terms will be sent to the patient. Approximately 15% of breast malignancies will not be visualized mammographically. In the management of a palpable breast mass, a negative mammogram must not discourage biopsy of a clinically suspicious lesion. Electronically Signed By: Arron Steiner M.D., jr/lauren:05/04/2022 15:06:42 ACR BI-RADS Category 1: Negative 3341F PARENCHYMAL PATTERN: (A) - The breast(s) demonstrate(s) scattered fibroglandular densities. BI-RADS CATEGORY: (1) - 1 RECOMMENDATION: (ANNUAL) - Recommend routine annual screening mammography. [id number] 1 year screening LATERALITY: (B)
== END 2022-05-04 10:19 | disposition home or self-care (01) ==
LOC: DI.N 10:18
PROVIDERS: ATTEND Physician Assistant
DX: Z12.31 Encounter for screening mammogram for malignant neoplasm of breast (principal); Z85.3 Personal history of malignant neoplasm of breast

== ENCOUNTER 2022-05-29 13:24 | Outpatient (CLI) | payer MEDICARE, OTHER ==
[2022-05-29 18:29] LABS: THYROID STIMULATING HORMONE 1.31 uIU/mL (0.34-5.60)
[2022-05-29 18:31] LABS: FREE T4 (FREE THYROXINE) 1.09 ng/dL (0.58-1.64)
== END 2022-05-29 13:25 | disposition home or self-care (01) ==
LOC: LAB.N 13:24
PROVIDERS: ATTEND Physician Assistant
DX: E03.9 Hypothyroidism, unspecified (principal)
CPT/HCPCS: 36415; 84439; 84443

== ENCOUNTER 2022-06-02 14:04 | Outpatient (CLI) | payer MEDICARE, OTHER ==
--- NOTE | 2022-06-02 15:37 | XRAY Report ---
PROCEDURE: Sacrum/Coccyx INDICATIONS: CONTUSION OF LOWER BACK AND PELVIS TECHNIQUE: 3 views of the sacrum and coccyx acquired. COMPARISON: None FINDINGS: Bones: No fractures or dislocations. No suspicious bony lesions. Degenerative changes are present within the lower lumbar spine. Soft tissues: Visualized bowel gas pattern is normal. No suspicious soft tissue densities. IMPRESSION: No visualized acute fracture or dislocation. However, occult injury cannot be excluded. Recommend david rt interval imaging follow-up in 7-10 days as clinically indicated for additional evaluation. Reviewed by: Loraine Arizmendi MD on 06/02/2022 3:36 PM PDT Approved by: Loraine Arizmendi MD on 06/02/2022 3:36 PM PDT Station ID: [id number]
== END 2022-06-02 14:05 | disposition home or self-care (01) ==
LOC: DI.N 14:04
PROVIDERS: ATTEND Physician Assistant
DX: S30.0XXA Contusion of lower back and pelvis, initial encounter (principal)

== ENCOUNTER 2022-11-26 09:59 | Outpatient (CLI) | payer MEDICARE, OTHER ==
[2022-11-26 11:32] LABS: BASOPHILS % (AUTO) 0.6 %; EOSINOPHILS # (AUTO) 0.2 10^3/uL (0.0-0.7); EOSINOPHILS % (AUTO) 3.8 %; HCT - HEMATOCRIT 42.9 % (37.0-47.0); HGB - HEMOGLOBIN 13.8 g/dL (12.0-16.0); LYMPHOCYTES # (AUTO) 1.7 10^3/uL (1.5-3.5); LYMPHOCYTES % (AUTO) 31.7 %; MEAN CORPUSCULAR HEMOGLOBIN 28.1 pg (27.0-31.0); MEAN CORPUSCULAR HGB CONC 32.2 g/dL (32.0-36.0); MEAN CORPUSCULAR VOLUME 87.4 fL (81.0-99.0); MONOCYTES # (AUTO) 0.6 10^3/uL (0.0-1.0); MONOCYTES % (AUTO) 11.2 %; NEUTROPHILS # (AUTO) 2.8 10^3/uL (1.5-6.6); NEUTROPHILS % (AUTO) 52.3 %; PLT - PLATELET COUNT 260 10^3/uL (130-450); RED BLOOD COUNT 4.91 10^6/uL (4.20-5.40); RED CELL DISTRIBUTION WIDTH 13.2 % (12.0-15.0); WHITE BLOOD COUNT 5.3 x10^3/uL (4.8-10.8)
[2022-11-26 12:00] LABS: ESTIMATED AVERAGE GLUCOSE 134 mg/dL (70-100); HEMOGLOBIN A1c% 6.3 % (4.27-6.07)
[2022-11-26 12:06] LABS: ALBUMIN 4.1 g/dL (3.2-5.5); ALBUMIN/GLOBULIN RATIO 1.5 (1.0-2.2); ALKALINE PHOSPHATASE 65 IU/L (42-121); ALT ALANINE AMINOTRANSFERASE 33 IU/L (10-60); AST ASPARTATE AMINOTRANSFERASE 28 IU/L (10-42); BILIRUBIN,TOTAL 0.9 mg/dL (0.2-1.0); BUN - BLOOD UREA NITROGEN 21 mg/dL (6-20); CALCIUM 9.2 mg/dL (8.5-10.3); CARBON DIOXIDE - CO2 29 mmol/L (21-32); CHLORIDE 103 mmol/L (101-111); CHOL/HDL RATIO 3.7 (<4.4); CHOLESTEROL 156 mg/dL; CREATININE 1.1 mg/dL (0.4-1.0); GFR - MDRD 48 (>89); GLUCOSE 130 mg/dL (70-100); HDL CHOLESTEROL 42 mg/dL; LDL CHOLESTEROL,CALCULATED 79 mg/dL; LDL/HDL RATIO 1.9 (<4.4); POTASSIUM 3.8 mmol/L (3.5-5.0); SODIUM 137 mmol/L (135-145); TOTAL PROTEIN 6.9 g/dL (6.7-8.2); TRIGLYCERIDES 174 mg/dL; VLDL CHOLESTEROL 35 mg/dL
[2022-11-26 12:16] LABS: THYROID STIMULATING HORMONE 3.26 uIU/mL (0.34-5.60)
[2022-11-26 12:18] LABS: FREE T4 (FREE THYROXINE) 0.9 ng/dL (0.58-1.64)
== END 2022-11-26 10:00 | disposition home or self-care (01) ==
LOC: LAB.N 09:59
PROVIDERS: ATTEND Physician Assistant
DX: I10 Essential (primary) hypertension (principal); E78.5 Hyperlipidemia, unspecified; R73.03 Prediabetes; E03.9 Hypothyroidism, unspecified
CPT/HCPCS: 36415; 80053; 80061; 83036; 83721; 84439; 84443; 85025

== ENCOUNTER 2023-05-10 13:16 | Outpatient (CLI) | payer MEDICARE, OTHER ==
--- NOTE | 2023-05-11 13:07 | Mammography Report ---
BILATERAL DIGITAL SCREENING MAMMOGRAM 3D/2D: 05/10/2023 CLINICAL: Routine screening. Personal history of right breast cancer. Comparison is made to exams dated: 05/04/2022 mammogram, 05/01/2021 ultrasound, 05/01/2021 mammogram, 1 mammogram, 10/11/2019 mammogram, and 02/02/2019 mammogram - . There are scattered areas of fibroglandular density in both breasts (category b / 25%-50% glandular t issue). There is a benign focal asymmetry in the left breast. There also are benign post operative findings in the right breast. No significant masses, calcifications, or other findings are seen in either breast. There has been no significant interval change. IMPRESSION: BENIGN There is no mammographic evidence of malignancy. A 1 year screening mammogram is recommended. This exam was interpreted at Station ID: [id number]. NOTE: For mammograms, a report in lay terms will be sent to the patient. Approximately 15% of breast malignancies will not be visualized mammographically. In the management of a palpable breast mass, a negative mammogram must not discourage biopsy of a clinically suspicious lesion. Electronically Signed By: Jericho Morrison M.D. aty/lauren:05/10/2023 15:35:12 letter sent: No_Letter ACR BI-RADS Category 2: Benign Finding(s) 3342F PARENCHYMAL PATTERN: (A) - The breast(s) demonstrate(s) scattered fibroglandular densities. BI-RADS CATEGORY: (2) - 2 Mammogram [id number] 1 year screening LATERALITY: (B)
== END 2023-05-10 13:17 | disposition home or self-care (01) ==
LOC: DI.N 13:16
DX: Z12.31 Encounter for screening mammogram for malignant neoplasm of breast (principal); Z85.3 Personal history of malignant neoplasm of breast

== ENCOUNTER 2023-05-28 08:55 | Outpatient (CLI) | payer MEDICARE, OTHER ==
[2023-05-28 12:06] LABS: BASOPHILS % (AUTO) 0.6 %; EOSINOPHILS # (AUTO) 0.2 10^3/uL (0.0-0.7); EOSINOPHILS % (AUTO) 2.9 %; HCT - HEMATOCRIT 43.2 % (37.0-47.0); HGB - HEMOGLOBIN 14.1 g/dL (12.0-16.0); LYMPHOCYTES % (AUTO) 30.6 %; MEAN CORPUSCULAR HEMOGLOBIN 28.3 pg (27.0-31.0); MEAN CORPUSCULAR HGB CONC 32.6 g/dL (32.0-36.0); MEAN CORPUSCULAR VOLUME 86.6 fL (81.0-99.0); MEAN PLATELET VOLUME 10.3 fL (7.9-10.8); MONOCYTES # (AUTO) 0.7 10^3/uL (0.0-1.0); MONOCYTES % (AUTO) 9.8 %; NEUTROPHILS # (AUTO) 3.7 10^3/uL (1.5-6.6); NEUTROPHILS % (AUTO) 55.6 %; PLT - PLATELET COUNT 257 10^3/uL (130-450); RED BLOOD COUNT 4.99 10^6/uL (4.20-5.40); RED CELL DISTRIBUTION WIDTH 13.8 % (12.0-15.0); WHITE BLOOD COUNT 6.6 x10^3/uL (4.8-10.8)
[2023-05-28 12:18] LABS: ALBUMIN 4.2 g/dL (3.2-5.5); ALBUMIN/GLOBULIN RATIO 1.9 (1.0-2.2); ALKALINE PHOSPHATASE 66 IU/L (42-121); ALT ALANINE AMINOTRANSFERASE 26 IU/L (10-60); AST ASPARTATE AMINOTRANSFERASE 24 IU/L (10-42); BILIRUBIN,TOTAL 0.5 mg/dL (0.2-1.0); BUN - BLOOD UREA NITROGEN 18 mg/dL (6-20); CALCIUM 9.4 mg/dL (8.5-10.3); CARBON DIOXIDE - CO2 30 mmol/L (21-32); CHLORIDE 104 mmol/L (101-111); CHOL/HDL RATIO 3.4 (<4.4); CHOLESTEROL 155 mg/dL; GFR - MDRD 54 (>89); GLUCOSE 116 mg/dL (74-104); HDL CHOLESTEROL 45 mg/dL; LDL CHOLESTEROL,CALCULATED 75 mg/dL; LDL/HDL RATIO 1.7 (<4.4); POTASSIUM 3.7 mmol/L (3.5-4.5); SODIUM 139 mmol/L (135-145); TOTAL PROTEIN 6.4 g/dL (6.4-8.9); TRIGLYCERIDES 173 mg/dL (48-352); VLDL CHOLESTEROL 35 mg/dL
[2023-05-28 12:31] LABS: ESTIMATED AVERAGE GLUCOSE 137 mg/dL (70-100); HEMOGLOBIN A1c% 6.4 % (4.27-6.07)
[2023-05-28 12:34] LABS: THYROID STIMULATING HORMONE 4.22 uIU/mL (0.34-5.60)
== END 2023-05-28 08:56 | disposition home or self-care (01) ==
LOC: LAB.N 08:55
PROVIDERS: ATTEND Physician Assistant
DX: I12.9 Hypertensive chronic kidney disease with stage 1 through stage 4 chronic kidney disease, or unspecified chronic kidney disease (principal); N18.31 Chronic kidney disease, stage 3a; E78.5 Hyperlipidemia, unspecified; R73.03 Prediabetes; E03.9 Hypothyroidism, unspecified
CPT/HCPCS: 36415; 80053; 80061; 83036; 83721; 84443; 85025

== ENCOUNTER 2023-11-25 09:27 | Outpatient (CLI) | payer MEDICARE, OTHER ==
[2023-11-25 12:37] LABS: ESTIMATED AVERAGE GLUCOSE 134 mg/dL (70-100); HEMOGLOBIN A1c% 6.3 % (4.27-6.07)
[2023-11-25 12:44] LABS: CALCIUM 10.2 mg/dL (8.5-10.3); CREATININE 1.1 mg/dL (0.6-1.3); POTASSIUM 3.8 mmol/L (3.5-4.5)
== END 2023-11-25 09:28 | disposition home or self-care (01) ==
LOC: LAB.N 09:27
PROVIDERS: ATTEND Physician Assistant
DX: N18.31 Chronic kidney disease, stage 3a (principal); R73.03 Prediabetes
CPT/HCPCS: 36415; 80048; 83036

== ENCOUNTER 2024-02-18 19:23 | Emergency (ER) | payer MEDICARE, OTHER ==
[2024-02-18 20:09] LABS: BASOPHILS % (AUTO) 0.5 %; EOSINOPHILS # (AUTO) 0.2 10^3/uL (0.0-0.7); EOSINOPHILS % (AUTO) 3.2 %; HCT - HEMATOCRIT 40.1 % (37.0-47.0); HGB - HEMOGLOBIN 12.8 g/dL (12.0-16.0); LYMPHOCYTES # (AUTO) 2.5 10^3/uL (1.5-3.5); LYMPHOCYTES % (AUTO) 33.6 %; MEAN CORPUSCULAR HEMOGLOBIN 26.9 pg (27.0-31.0); MEAN CORPUSCULAR HGB CONC 31.9 g/dL (32.0-36.0); MEAN CORPUSCULAR VOLUME 84.4 fL (81.0-99.0); MEAN PLATELET VOLUME 9.9 fL (7.9-10.8); MONOCYTES # (AUTO) 0.8 10^3/uL (0.0-1.0); MONOCYTES % (AUTO) 10.2 %; NEUTROPHILS # (AUTO) 3.9 10^3/uL (1.5-6.6); NEUTROPHILS % (AUTO) 52.2 %; PLT - PLATELET COUNT 266 10^3/uL (130-450); RED BLOOD COUNT 4.75 10^6/uL (4.20-5.40); RED CELL DISTRIBUTION WIDTH 13.3 % (12.0-15.0); WHITE BLOOD COUNT 7.5 x10^3/uL (4.8-10.8)
[2024-02-18 20:27] LABS: ALBUMIN 4.3 g/dL (3.2-5.5); ALBUMIN/GLOBULIN RATIO 1.7 (1.0-2.2); BILIRUBIN,TOTAL 0.5 mg/dL (0.2-1.0); CALCIUM 9.9 mg/dL (8.5-10.3); CREATININE 0.9 mg/dL (0.6-1.3); POTASSIUM 3.8 mmol/L (3.5-4.5); TOTAL PROTEIN 6.9 g/dL (6.4-8.9)
[2024-02-18 20:41] LABS: TROPONIN I HIGH SENSITIVITY 17.8 ng/L (2.3-14.8)
[2024-02-18 20:44] VITALS: O2SAT 98
--- NOTE | 2024-02-18 21:23 | XRAY Report ---
PROCEDURE: Chest 1V INDICATIONS: Chest pain TECHNIQUE: One view of the chest was acquired. COMPARISON: Chest radiograph 09/20/2015. FINDINGS: Surgical changes and devices: Surgical clips overlie the right breast.. Lungs and pleura: No pleural effusions or pneumothorax. Lungs are clear. Mediastinum: Mediastinal contours appear normal. Heart size is normal. Bones and chest wall: No suspicious bony lesions. Overlying soft tissues appear unremarkable. IMPRESSION: No acute cardiopulmonary process. Reviewed by: Emerald Mercado MD, PhD on 02/18/2024 9:22 PM PDT Approved by: Emerald Mercado MD, PhD on 02/18/2024 9:22 PM PDT Station ID: [id number]
--- NOTE | 2024-02-18 21:26 | ED Physician Documentation ---
History of Present Illness - Stated complaint Stated Complaint: BP/ HEAD PX - Chief complaint Chief Complaint: Cardiac - History obtained from History obtained from: Patient - Additonal information Additional information: She has a history of hypertension and PVCs. No other heart issues. She is maintained on hydrochlorothiazide and metoprolol for the above. Earlier today she felt a creepy crawly sensation on the top of her scalp. It was not painful. That made her nervous though and she checked her blood pressure several times and it was elevated, up to the 200/100 range. At this point she is feeling much better and more relaxed. There has not been any chest pain associated with this. PD PAST MEDICAL HISTORY - Past Medical History Past Medical History: Yes Cardiovascular: Hypertension, High cholesterol Respiratory: None Endocrine/Autoimmune: HyPOthyroidism GI: GERD : None Psych: Claustrophobia Musculoskeletal: Other Derm: None - Past Surgical History Past Surgical History: No General: Colonoscopy, EGD - Present Medications Home Medications: Ambulatory Orders Medication Instructions Recorded Confirmed Levothyroxine Sodium [Synthroid] 88 mcg PO DAILY 04/05/13 02/18/24 Simvastatin [Zocor] 40 mg PO QPM 04/05/13 02/18/24 cycloSPORINE [Restasis] 1 each OP BID 04/05/13 02/18/24 Cholecalciferol (Vitamin D3) 2,000 unit PO DAILY 06/14/13 02/18/24 [Vitamin D] Multivitamin [Multi-Vitamin Daily] 1 each PO DAILY 06/14/13 02/18/24 Esomeprazole Magnesium [Nexium] 40 mg PO DAILY 02/18/24 02/18/24 Magnesium 1 tab PO ONCE 02/18/24 02/18/24 Metoprolol Succinate [Toprol Xl] 25 mg PO DAILY 02/18/24 02/18/24 hydroCHLOROthiazide [Hydrodiuril] 25 mg PO DAILY 02/18/24 02/18/24 - Allergies Allergies/Adverse Reactions: Allergies Allergy/AdvReac Type Severity Reaction Status Date / Time adhesive AdvReac Mild Rash Verified 02/18/24 19:26 Penicillins AdvReac Unknown Rash Verified 02/18/24 19:26 - Social History Does the pt smoke?: No Smoking Status: Never smoker Does the pt drink ETOH?: No Does the pt have substance abuse?: No - Immunizations Immunizations are current?: Yes - POLST Patient has POLST: No PD ED PE NORMAL - Vitals Vital signs reviewed: Yes - General General: Alert and oriented X 3, No acute distress - HEENT HEENT: PERRL, EOMI - Neck Neck: Supple, no meningeal sign, No bony TTP - Cardiac Cardiac: RRR (Occasional PVCs), No murmur - Respiratory Respiratory: No respiratory distress, Clear bilaterally - Abdomen Abdomen: Non tender - Back Back: No CVA TTP, No spinal TTP - Derm Derm: Normal color, Warm and dry - Extremities Extremities: No edema, No calf tenderness / cord - Neuro Neuro: Alert and oriented X 3, 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, No motor deficit, No sensory deficit, Normal speech Eye Opening: Spontaneous Motor: Obeys Commands Verbal: Oriented GCS Score: 15 - Psych Psych: Normal mood, Normal affect Results - Vitals Vitals: Vital Signs - 24 hr 02/18/24 02/18/24 02/18/24 19:27 19:40 21:15 Temperature 36.6 C Heart Rate 86 73 70 Respiratory 16 16 18 Rate Blood Pressure 180/80 H 150/81 H 152/94 H O2 Saturation 96 98 100 02/18/24 02/18/24 21:26 21:30 Temperature Heart Rate 72 73 Respiratory 14 15 Rate Blood Pressure 157/90 H 154/76 H O2 Saturation 99 98 Oxygen O2 Source Room air - EKG (time done) 1935 EKG releavant findings:: EKG personally interpreted by author of this note. Relevant findings are: Rate: Rate (enter#) (73) Rhythm: NSR (w pvcs) [place]: Normal Intervals: Normal NM QRS: Normal, Low voltage Ischemia: Normal ST segments - Labs Labs: Laboratory Tests 02/18/24 02/18/24 20:04 20:04 WBC 7.5 RBC 4.75 Hgb 12.8 Hct 40.1 MCV 84.4 MCH 26.9 L MCHC 31.9 L RDW 13.3 Plt Count 266 MPV 9.9 Neut # (Auto) 3.9 Lymph # (Auto) 2.5 [place] # (Auto) 0.8 Eos # (Auto) 0.2 Baso # (Auto) 0.0 Absolute Nucleated RBC 0.00 Nucleated RBC % 0.0 Sodium 135 Potassium 3.8 Chloride 99 L Carbon Dioxide 30 Anion Gap 6.0 BUN 17 Creatinine 0.9 Estimated GFR (MDRD) 60 L Glucose 117 H Calcium 9.9 Total Bilirubin 0.5 AST 26 ALT 26 Alkaline Phosphatase 67 Troponin I High Sens 17.8 H* Total Protein 6.9 Albumin 4.3 Globulin 2.6 Albumin/Globulin Ratio 1.7 Lipase 18 - Rads (name of study) Single view chest x-ray is unremarkable. Relevant Findings:: Final report received, EMP independent interpretation of test PD Medical Decision Making - ED course ED course: She presents with scalp paresthesias that are pretty much resolved. No headache. She has a normal exam and she was more worried about her blood pressure than anything else. 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 She has no other heart disease. Her CBC is unremarkable. Her CMP is unremarkable. And she had a very minimal elevation in her troponin to 17.8 which given her symptomatology I think is inconsequential. She was advised to keep an eye on her blood pressure at home and that she could double her metoprolol if it remains elevated. On my evaluation her blood pressure is 155/92. Departure - Departure Disposition: Home, Self Care Clinical Impression: Hypertension Qualifiers: Hypertension type: unspecified Qualified Code(s): I10 - Essential (primary) hypertension Condition: Good Record reviewed to determine appropriate education?: Yes Instructions: ED HTN Established Comments: If you are blood pressure remains elevated you could double your metoprolol tomorrow. Otherwise there is no sign of anything serious going on. Return for new or worsening symptoms and follow-up with your immigration specialist and primary care physicians, next available appointments. Forms: PCP List
[2024-02-18 21:34] VITALS: BP 154/76
== END 2024-02-18 21:40 | disposition home or self-care (01) ==
LOC: ED 19:23
DX: I10 Essential (primary) hypertension (principal); R20.2 Paresthesia of skin; I49.3 Ventricular premature depolarization
CPT/HCPCS: 36415; 80053; 83690; 84484; 85025; 93005; 99283; 99284